=== PATIENT | female | born 1960 | race Asian ===

== ENCOUNTER → 2018-04-07 | Outpatient (CLI) | payer BC | END | disposition home or self-care (01) | LOC: CFH 07:11 | PROVIDERS: ATTEND Internal Medicine | DX: Z12.31 Encounter for screening mammogram for malignant neoplasm of breast (principal); Z80.3 Family history of malignant neoplasm of breast | CPT/HCPCS: 77067 ==

== ENCOUNTER → 2019-09-07 | Outpatient (CLI) | payer BC | END | disposition home or self-care (01) | LOC: CFH 09:09 | PROVIDERS: ATTEND Internal Medicine | DX: Z12.31 Encounter for screening mammogram for malignant neoplasm of breast (principal) | CPT/HCPCS: 77063; 77067 ==

== ENCOUNTER → 2020-10-09 | Outpatient (CLI) | payer BC | END | disposition home or self-care (01) | LOC: CFH 08:01 | PROVIDERS: ATTEND Internal Medicine | DX: Z12.31 Encounter for screening mammogram for malignant neoplasm of breast (principal) | CPT/HCPCS: 77063; 77067 ==